=== PATIENT | male | born 1940 | race Caucasian/White ===

== ENCOUNTER → 2024-09-17 08:40 | Outpatient (CLI) | payer MEDICARE, OTHER, SELFPAY ==
--- NOTE | 2024-09-17 08:45 | DI.RAD.S_ITS ---
PROCEDURE: FL BARIUM SWALLOW INDICATIONS: FOOD STICK ON SWALLOWING/MID ESOPHAGUS COMPARISON: None. FINDINGS: Function: Tertiary esophageal contractions with slightly on uncoordinated peristalsis at the distal thoracic esophagus in the standing position. Spontaneous esophageal reflux to the level of the clavicles in the supine position. There is normal transit of a calibrated barium tablet through the esophagus into the stomach. Morphology: Air-contrast images demonstrate normal mucosal morphology. Small-moderate hiatal hernia. Single contrast views show no esophageal strictures, extrinsic mass effects, or diverticula. Limited images of the stomach demonstrate normal appearance. IMPRESSION: 1. Small-moderate hiatal hernia. 2. Spontaneous esophageal reflux to the level of the clavicles in the supine position. Dictated by: Rafael Veronica M.D. on 09/17/2024 at 12:07 Approved by: Rafael Veronica M.D. on 09/17/2024 at 12:11
== END ==
PROVIDERS: PCP Family Medicine; Referring Provider Family Medicine; Visit Provider Family Medicine
DX: R13.10 Dysphagia, unspecified (principal); K44.9 Diaphragmatic hernia without obstruction or gangrene; K21.9 Gastro-esophageal reflux disease without esophagitis
CPT/HCPCS: 74220